=== PATIENT | female | born 1945 | race Two or more races ===

== ENCOUNTER 2016-10-01 20:30 | Emergency (ER) | payer BC ==
[~2016-10-01 20:30] MED LIST: ALEVE220 MG PO; ASAB PO; BENTYL20 PO; BETAPACE80 PO; BUSPAR15 M1 PO; CARASPUDL PO; CYANO1000T PO; DEMA10T PO; DSS PO; FISH-EPA1000 MG PO; GINKGO PO; GINKO BILOBA PO; GLUCCHONDR PO; HALF81 PO; HCTZ25B PO; HYDROCHLOROT25 MG PO; ISORDIL10 PO; ISOSORBIDE; KAPIDEX60 MG PO; KDUR10 PO; L40 PO; LEVAQUIN750 MG PO; LEVOTHROID50 MCG PO; LORTAB 5 PO; MELATONIN5 M1 PO; PRILO PO; PRIM50B PO; PROMEGA PO; SPIRO50 PO; SUCR PO; SYMBICORT 160/41 INH INH; SYN.05 PO; SYN075 PO; TESSALON200 MG PO; ULTRAM50 PO; VASOTEC10 PO; VIT E PO; VITC500 PO; VITE PO; ZOFRAN4 PO; [UNRECOGNIZED DRUG - MIXTURE] TOP; [UNRECOGNIZED DRUG - OTHER] PO
[2016-10-01 22:01] LABS: BASOPHILS 0.3 %; BASOPHILS ABSOLUTE 0.01 10/3/uL (0.0-0.16); EOSINOPHILS 6.7 %; EOSINOPHILS ABSOLUTE 0.26 10/3/uL (0.0-0.53); HEMATOCRIT 37.4 % (36.0-48.0); HEMOGLOBIN 11.9 g/dL (12.0-16.0); LYMPHOCYTES 34.9 %; LYMPHOCYTES ABSOLUTE 1.36 10/3/uL (0.67-4.30); MEAN CORPUS HGB CONC 31.8 g/dL (32.0-36.0); MEAN CORPUSCULAR HEMOGLOB 28.6 pg (26.0-34.0); MEAN CORPUSCULAR VOLUME 89.9 fL (80-100); MEAN PLATELET VOLUME 11.8 fL (9.2-13.0); MONOCYTES 12.3 %; MONOCYTES ABSOLUTE 0.48 10/3/uL (0.21-1.20); NEUTROPHILS 45.8 %; NEUTROPHILS ABSOLUTE 1.79 10/3/uL (2.02-8.40); PLATELET COUNT 176 10/3/uL (150-400); RBC DISTRIBUTION WIDTH 12.5 % (12.0-16.0); RED CELL COUNT 4.16 10/6/uL (4.0-5.6)
[2016-10-01 22:06] LABS: ER CBC TAT 0 Hrs 08 Mins; MANUAL DIFF NO %; WHITE BLOOD CELLS 3.9 10/3/uL (4.5-10.5)
[2016-10-01 22:15] LABS: A/G RATIO 0.8 (0.7-1.9); ALBUMIN 3.3 G/DL (3.5-5.0); CALCIUM, SERUM 8.7 MG/DL (8.5-10.4); CHLORIDE, SERUM 106 MMOL/L (96-112); CO2 (CARBON DIOXIDE) 30 MMOL/L (24-34); CREATININE 0.59 MG/DL (0.55-1.02); GFR AFRICAN AMERICAN 109 ML/MIN (>=60); GFR NON AFRICAN AMERICAN 94 ML/MIN (>=60); GLOBULIN 3.9 G/DL (2.5-4.1); GLUCOSE, SERUM 108 MG/DL (60-99); POTASSIUM, SERUM 3.8 MMOL/L (3.5-5.3); SGOT(AST) 23 U/L (5-40); SGPT(ALT) 23 U/L (5-65); SODIUM, SERUM 142 MMOL/L (135-148); TOTAL BILIRUBIN 0.2 MG/DL (0-1.2); TOTAL PROTEIN 7.2 G/DL (6.0-8.5)
[2016-10-01 22:18] LABS: ALKALINE PHOSPHATASE 63 U/L (45-117); BUN (BLOOD UREA NITROGEN) 7 MG/DL (6-23)
[2016-10-02 01:54] LABS: ASCORBIC ACID (UR NOT ORDER) NEG (NEG); BILIRUBIN, URINE NEGATIVE (NEG); ER URINALYSIS TAT 0 Hrs 00 Mins; KETONE, URINE NEGATIVE (NEG); NITRITE (URINE) NEG (NEG); WBC (NOT ORDERED) (RFLEX) 2 (0-5)
[2016-10-02 02:11] LABS: LEUKOCYTE ESTERASE(NOT OR TRACE (NEG)
== END 2016-10-02 03:20 | disposition home or self-care (01) ==
LOC: ER 20:30
PROVIDERS: Nurse Practitioner
DX: J06.9 Acute upper respiratory infection, unspecified (principal); M79.1 Myalgia; I10 Essential (primary) hypertension; J45.909 Unspecified asthma, uncomplicated; I48.91 Unspecified atrial fibrillation; F41.9 Anxiety disorder, unspecified; Z88.1 Allergy status to other antibiotic agents; Z88.5 Allergy status to narcotic agent; Z88.8 Allergy status to other drugs, medicaments and biological substances
CPT/HCPCS: 71020; 80053; 81001; 83690; 85025; 99284